=== PATIENT | male | born 1960 | race Caucasian/White ===

== ENCOUNTER 2024-12-15 06:51 | Outpatient (CLI) | payer OTHER, SELFPAY ==
--- NOTE | ~2024-12-15 | MR_ITS ---
EXAMINATION: MR thoracic spine wo con, 12/15/2024 7:15 CDT HISTORY: Thoracic back pain COMPARISON: None TECHNIQUE: Multi-planar multi-sequence images were obtained of the thoracic spine without contrast per protocol. FINDINGS: Moderate loss of vertebral height throughout, no fracture or subluxation. Marrow signal is appropriate with scattered areas of probable hemangioma formation. Posterior alignment is intact, no abnormal signal within the posterior elements There is no abnormal cervical within the cord There is moderate loss of disc height throughout with multilevel disc desiccation and endplate degenerative changes most marked at T8-9, T9-10 and T10-11 and T11-T12 with disc protrusion at T8-9 with mild canal stenosis The soft tissues appear unremarkable IMPRESSION: Degenerative changes detailed above Reviewed, dictated and finalized at location A.
--- NOTE | ~2024-12-15 | MR_ITS ---
EXAMINATION: MR lumbar spine wo lu, 12/15/2024 8:00 CDT HISTORY: Lbp COMPARISON: None TECHNIQUE: Multi-planar multi-sequence images were obtained of the lumbar spine without contrast per protocol. FINDINGS: There is a remote compression fracture of L1 with loss of height 50%, minimal retropulsion measures 2 mm. Remaining vertebral heights are intact with no acute fracture or subluxation, evaluation of the sacrum is limited by artifact. Visualized posterior elements appear unremarkable with no abnormal signal. The conus terminates at T12-L1, no abnormal signal in the cord There is moderate loss of disc height at T12-L1 and L1-2 with moderate disc desiccation and endplate degenerative changes with similar findings noted at L5-S1. The soft tissues demonstrate partially imaged probable right renal cyst 3 x 3 cm L5-S1: Circumferential bulging of the disc. Mild ligamentum flavum and facet hypertrophy. Moderate bilateral foramina and lateral recess stenosis, no canal stenosis. L4-5: Circumferential bulging of the disc with ligamentum flavum and facet hypertrophy. Mild bilateral foramina and lateral recess stenosis, no canal stenosis. L3-4: No canal or neural foramina stenosis L2-3: No canal or foraminal stenosis L1-L2: No canal or foraminal stenosis IMPRESSION: Degenerative changes detailed above Reviewed, dictated and finalized at location A.
== END 2024-12-15 06:52 | disposition home or self-care (01) ==
LOC: MICIMG 06:52
DX: M54.6 Pain in thoracic spine (principal); M54.50 Low back pain, unspecified
CPT/HCPCS: 72146; 72148